=== PATIENT | male | born 1980 | race Caucasian/White ===

== ENCOUNTER 2018-08-14 16:36 | Emergency (ER) | payer OTHER, SELFPAY ==
[2018-08-14 17:03] VITALS: BP 124/70; PULSE 61; RESP 18; TEMP 98.6; O2SAT 99
[2018-08-14] MEDS ORDERED: Tdap Vaccine 0.5 ml Vial (10-64 yrs) IM ONE ×2 (17:50→17:57)
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
--- NOTE | 2018-08-14 17:53 | RAD ---
Date of service: 08/14/2018 PROCEDURE: Left Ankle Radiographs. HISTORY: s/p fall COMPARISON: None available. TECHNIQUE: 3 views obtained. FINDINGS: BONES: Are acute nondisplaced transverse and oblique fractures in the lateral malleolus. Bone alignment and mineralization are normal. JOINTS: Normal. No osteoarthritis. Ankle mortise maintained. Talar dome intact SOFT TISSUES: Moderate lateral soft tissue swelling. OTHER FINDINGS: None. IMPRESSION: Acute nondisplaced transverse and oblique fractures in the lateral malleolus and moderate lateral soft tissue swelling.
--- NOTE | 2018-08-14 17:54 | C.PDOC ---
Time Seen by Provider: 08/14/18 17:08 Chief Complaint (Nursing): Lower Extremity Problem/Injury Past Medical History Vital Signs: Last Vital Signs Temp 98.6 F 08/14/18 16:59 Pulse 61 08/14/18 16:59 Resp 18 08/14/18 16:59 BP 124/70 08/14/18 16:59 Pulse Ox 99 08/14/18 16:59 - Social History Hx Tobacco Use: No Hx Alcohol Use: Yes Hx Substance Use: No - Immunization History Hx Tetanus Toxoid Vaccination: No Hx Influenza Vaccination: No Hx Pneumococcal Vaccination: No ED Course And Treatment O2 Sat by Pulse Oximetry: 99 Disposition Counseled Patient/Family Regarding: Studies Performed, Diagnosis, Need For Followup, Rx Given - Disposition Referrals: Orthopedic Clinic at [Outside] Disposition: HOME/ ROUTINE Disposition Time: 17:54 Condition: STABLE Additional Instructions: Motrin as needed for pain Rest, Ice, Compression, and Elevation Follow up in Ortho clinic Return to ED if symptoms worsen Prescriptions: Ibuprofen [Motrin] 600 mg PO Q8 PRN #30 tab PRN Reason: Pain, Moderate (4-7) Instructions: Ankle Fracture (DC) Forms: Work Excuse, [facility] ([place]oran) Print Language: HAITIAN - Clinical Impression Clinical Impression: Ankle pain, left, Fracture of lateral malleolus
== END 2018-08-14 18:09 | disposition home or self-care (01) ==
LOC: C.ER 16:36
DX: S82.65XA Nondisplaced fracture of lateral malleolus of left fibula, initial encounter for closed fracture (principal); V83.5XXA Driver of special industrial vehicle injured in nontraffic accident, initial encounter; Y92.89 Other specified places as the place of occurrence of the external cause; Y99.0 Civilian activity done for income or pay; M25.572 Pain in left ankle and joints of left foot